=== PATIENT | female | born 1990 | race Caucasian/White ===

== ENCOUNTER 2017-12-09 08:33 | Outpatient (CLI) | payer OTHER ==
--- NOTE | 2017-12-09 09:41 | Ultrasound Report ---
LEFT BREAST ULTRASOUND: 12/09/17 08:33:00 CLINICAL: Palpable left breast lump. COMPARISON: None FINDINGS: Ultrasound of the left breast(including all four quadrants and the retroareolar area) was performed and demonstrated a single solid oval hypoechoic mass at 3 o'clock 4 cm from the nipple. It has a lobular shape, demonstrates mild shadowing and measures 1.2 x 1.1 x 0.6 cm. No other mass. Ultrasound of the left axilla demonstrated a single lymph node with central fat and benign morphology measuring 1.4 x 0.6 x 0.8 cm. No suspicious lymph nodes. IMPRESSION: A solid 1.2 cm left breast mass at 3 o'clock. BI-RADS 4A--Mildly Suspicious RECOMMENDATION: Ultrasound guided needle core left breast biopsy. I discussed the findings and the options of conservative ultrasound surveillance for a two-year period versus ultrasound-guided needle core biopsy with the patient at the time of the examination. She indicated that she prefers to have a needle biopsy rather than conservative ultrasound surveillance. I also mentioned the option of her seeing a breast surgeon for consultation.
== END 2017-12-09 08:34 | disposition home or self-care (01) ==
LOC: SPVWC 08:33
PROVIDERS: ATTEND Family Medicine
DX: N63.21 Unspecified lump in the left breast, upper outer quadrant (principal)